=== PATIENT | female | born 2000 | race Two or more races ===

== ENCOUNTER 2021-08-30 10:49 | Emergency (ER) | payer MEDICAID, OTHER ==
[~2021-08-30] VITALS: Ht 177.8 cm; Wt 113.4 kg
[2021-08-30 11:03] VITALS: BP 129/87
[2021-08-30] MEDS ORDERED: KETOROLAC TROMETH 60MG/2ML VIAL IM ONE (11:45)
[2021-08-30] MEDS ORDERED: GABA300C10 PO (12:26)
[2021-08-30] MEDS ORDERED: IBUP800T27 PO (12:26)
== END 2021-08-30 12:29 | disposition home or self-care (01) ==
LOC: ER 10:49 → EDSEX 10:49 → ER 12:29
DX: G89.29 Other chronic pain (principal); M54.50 Low back pain, unspecified; M62.830 Muscle spasm of back
CPT/HCPCS: 96372; 99283; J1885

== ENCOUNTER 2022-07-25 16:48 | Emergency (ER) | payer MEDICAID ==
[~2022-07-25] VITALS: Ht 177.8 cm; Wt 120.0 kg
[~2022-07-25 16:48] MED LIST: GABA300C10 PO; IBUP800T27 PO
[2022-07-25 17:05] VITALS: BP 155/98
[2022-07-25] MEDS ORDERED: KETOROLAC TROMETH 60MG/2ML VIAL IM ONE (17:45)
[2022-07-25] MEDS ORDERED: PROM1SOL4 PO (17:54)
[2022-07-25] MEDS ORDERED: AZIT500T66 PO (17:54)
[2022-07-25] MEDS ORDERED: IBUP800T27 PO (17:54)
[2022-07-25] MEDS ORDERED: BACL10TA PO (17:58)
== END 2022-07-25 18:09 | disposition home or self-care (01) ==
LOC: ER 16:48
DX: S39.012A Strain of muscle, fascia and tendon of lower back, initial encounter (principal); J20.9 Acute bronchitis, unspecified; G89.29 Other chronic pain; E66.01 Morbid (severe) obesity due to excess calories; Z68.38 Body mass index [BMI] 38.0-38.9, adult; X58.XXXA Exposure to other specified factors, initial encounter; Y93.89 Activity, other specified; Y92.89 Other specified places as the place of occurrence of the external cause; Y99.8 Other external cause status
CPT/HCPCS: 71045; 96372; 99283; J1885